=== PATIENT | female | born 1950 | race Caucasian/White ===

== ENCOUNTER 2025-02-13 14:35 | Emergency (ER) | payer OTHER ==
[~2025-02-13] VITALS: Ht 165.1 cm; Wt 119.7 kg
[2025-02-13] MEDS ORDERED: Acetaminophen/Oxycodone 5 MG/325 MG TABLET PO ONE (15:50)
[2025-02-13] MEDS ORDERED: predniSONE 20 MG TAB PO ONE (15:50)
[2025-02-13] MEDS ORDERED: HYDROCODONE-AC1 EAC1 PO (18:23)
[2025-02-13] MEDS ORDERED: PREDNISONE20 M1 PO (18:23)
[2025-02-13] MEDS ORDERED: NAPROSYN500 MG PO (18:23)
== END 2025-02-13 18:43 | disposition home or self-care (01) ==
LOC: ED 14:35
DX: M51.379 Other intervertebral disc degeneration, lumbosacral region without mention of lumbar back pain or lower extremity pain (principal); M17.11 Unilateral primary osteoarthritis, right knee; Z88.8 Allergy status to other drugs, medicaments and biological substances